=== PATIENT | male | born 1950 | race Caucasian/White ===

== ENCOUNTER 2024-09-29 09:41 | Inpatient (IN) | payer OTHER ==
[~2024-09-29] VITALS: Ht 182.9 cm; Wt 90.7 kg
[2024-09-29] MEDS ORDERED: METF500 PO (10:22)
[2024-09-29] MEDS ORDERED: AMLO5 PO (10:22)
[2024-09-29] MEDS ORDERED: Metoclopramide HCl 5MG / ML 2ML Vial IV ONE (10:30)
[2024-09-29 10:56] LABS: BASOPHILS ABSOLUTE AUTO 0.02 K/mm3 (0.00-0.23); BASOPHILS PERCENT AUTO 0 % (0-2); EOSINOPHILS ABSOLUTE AUTO 0.03 K/mm3 (0.00-0.68); EOSINOPHILS PERCENT AUTO 0 % (0-6); Hemoglobin 13.8 g/dL (13.5-17.5); IMMATURE GRAN ABSOLUTE AUTO 0.03 K/mm3 (0.00-0.10); IMMATURE GRAN PERCENT AUTO 0 % (0-1); LYMPHOCYTES ABSOLUTE AUTO 0.64 K/mm3 (0.84-5.20); LYMPHOCYTES PERCENT AUTO 7 % (21-46); MONOCYTES ABSOLUTE AUTO 0.75 K/mm3 (0.16-1.47); MONOCYTES PERCENT AUTO 8 % (4-13); Mean Corpuscular HGB 28.7 pg (26.0-34.0); Mean Corpuscular HGB Conc 34.5 g/dL (31.5-36.5); Mean Corpuscular Volume 83 fL (80-100); NEUTROPHILS ABSOLUTE AUTO 7.45 K/mm3 (1.96-9.15); NEUTROPHILS PERCENT AUTO 84 % (41-73); Platelet Count 177 K/mm3 (150-400); RDW Coefficient Variation 14.6 % (11.7-14.2); RDW Standard Deviation 44.1 fL (35.1-46.3); Red Blood Cell Count 4.81 M/mm3 (4.30-5.90); White Blood Cell Count 8.92 K/mm3 (4.00-11.30)
[2024-09-29] MEDS ORDERED: Morphine Sulfate 4 MG/1 ML Injection IV ONE (11:20)
[2024-09-29] MEDS ORDERED: Ondansetron HCl 2 MG / ML 2ML Vial IM ONE (11:20)
[2024-09-29 11:44] LABS: Albumin, Blood 3.9 g/dL (3.4-5.0); Albumin/Globulin Ratio 1.1 (0.8-1.8); Bilirubin, Total 1.6 mg/dL (0.1-1.0); Bun/Creatinine Ratio 25.4 (12.0-20.0); Calcium, Blood 9.4 mg/dL (8.5-10.1); Creatinine, Blood 0.47 mg/dL (0.60-1.20); Globulin, Blood 3.6 g/dL (2.2-4.0); Potassium, Blood 3.5 mmol/L (3.5-5.5); Total Protein, Blood 7.5 g/dL (6.4-8.2)
[2024-09-29] MEDS ORDERED: HYDROmorphone HCl/Pf 1MG SYR IV ONE ×2 (13:05→15:45)
[2024-09-29 13:26] LABS: Source, Urine Clean Catch
[2024-09-29 13:32] LABS: Appearance, Urine Clear (Clear); Bilirubin, Urine Neg (Neg); Blood, Urine Neg (Neg); Color, Urine Yellow (P-Yellow); Glucose Qualitative, Urine 4+ (Neg); Ketones, Urine 4+ (Neg); Leukocyte Esterase, Urine Neg (Neg); Nitrite, Urine Neg (Neg); Protein, Urine 1+ (Neg); Specific Gravity, Urine 1.015 (1.003-1.022); Urobilinogen, Urine NORM (Normal)
[2024-09-29] MEDS ORDERED: HYDROmorphone HCl/Pf 1MG SYR IV PRN (17:05)
[2024-09-29] MEDS ORDERED: Docusate Sodium/Senna 1 Tab PO PRN (17:05)
[2024-09-29] MEDS ORDERED: Lactated Ringer's 1,000 ML IV SCH (17:05)
[2024-09-29] MEDS ORDERED: Ondansetron HCl 2 MG / ML 2ML Vial IV PRN (17:05)
[2024-09-29] MEDS ORDERED: FLU VACC TS2024-25(6MOS UP)/PF 45 MCG/0.5 ML SYRINGE IM SCH (17:05)
[2024-09-29 21:53] VITALS: BP 141/122
--- NOTE | 2024-09-30 00:15 | NUR ---
@2129 REPORT RECEIVED FROM THE ELECTRIC ORGAN ASSEMBLER OLVIN. @2144 PT ARRIVED TO THE MEDICAL FLOOR IN A W/C. PT AMBULATORY AND TRANSFERRED HIMSELF TO THE HOSPITAL BED. PT BROUGHT ALL HIS BELONINGS WITH HIM. EDUCATED GROUND WATER CONTRACTOR LIGHT AND FALL PRECAUTIONS. BED AT THE LOWEST POSITION, CALL LIGHT W/I REACH. CHARGE NURSE ARIANA Turpin COMPLETED THE ADMISSION ASSESSMENT.
[2024-09-30 03:47] VITALS: BP 136/73
[2024-09-30 07:13] VITALS: BP 164/82
[2024-09-30] MEDS ORDERED: Enoxaparin 40 MG/0.4 ML SYR SC SCH (09:00)
[2024-09-30 16:02] VITALS: BP 142/80
--- NOTE | 2024-09-30 16:56 | NUR ---
SHIFT SUMMARY: PATIENT IS ALERT AND ORIENTEDX4/INDEPENDENT,CALLS APPROPRIATELY. HE CALLS FOR PAIN MEDICATION. PATIENT IN BED RESTING, RESPIRATIONS EVEN AND UNLABORED, SIGNIFICANT OTHER AT BEDSIDE, CALL LIGHT WITHIN REACH, NO SIGNS OR SYMPTOMS OF DISTRESS,PLAN OF CARE ONGOING.
--- NOTE | 2024-09-30 19:44 | NUR ---
@6938 CRITICAL LAB VALUE OF LACTIC ACID: [id number] RECEIVED FROM AUDREY @LAB. WILL NOTIFY THE ON-CALL HOSPITALIST. WILL NOTIFY OFFICE MACHINES WIRER.
[2024-09-30 22:02] VITALS: BP 122/67
--- NOTE | 2024-10-01 02:56 | NUR ---
SHIFT SUMMARY NO ACUTE EVENTS DURING THIS SHIFT. @HS MULTIPLE FAMILY MEMBERS/VISITORS BY THE BEDSIDE. PT IS A/O X4, PLEASANT AND COOPERATIVE WITH CARE. AMBULATES INDEPENDENTLY W/I THE HOSPITAL ROOM. PT REPORTS 8/10 ABDOMINAL PAIN, RADIATING TO THE FLANKS. MEDICATED PER EMAR WITH GOOD EFFECTIVNESS. PT REPORTS FLATUS, NO BM >2DAYS. HS SCHEDULED BOWEL MEDICATIONS ADMINISTERED ORDERED. BED AT THE LOWEST POSITION, CALL LIGHT W/I REACH. PT CONTINUES ON CLEAR LIQUID DIET. GOOD PO FLUID INTAKE.
[2024-10-01 07:48] VITALS: BP 129/75
--- NOTE | 2024-10-01 15:26 | NUR ---
SHIFT SUMMARY PATIENT AMBULATING INDEPENDENT IN ROOM, C/O ABDOMINAL PAIN. TOLERATING CLEAR LIQUID DIET WELL. VOIDING WELL, STATES TO PASSING GAS. A/OX4. DILAUDED ADMINISTERED FOR PAIN RELIEF. PULSE OX ORDERED AND PLACED. ABLE TO MAKE NEEDS KNOWN.
[2024-10-01 18:10] VITALS: BP 125/66
--- NOTE | 2024-10-02 03:57 | NUR ---
SHIFT SUMMARY NO ACUTE EVENTS DURING THIS SHIFT. MEDICATED FOR LUQ AND RUQ PAIN PER EMAR. PT REPORTS EFFECTIVE. PT C/O CONSTIPATION, HS SCHEDULED BOWEL MEDS ADMINISTERED ORDERED. PT PASSING GAS, AND BOWEL TONES HYPOACTIVE PER AUSCULTATION. ABD IS FIRM AND MODERATELY DISTENDED PER ASSESSMENT. PT IS INDEPENDENT W/I THE HOSPITAL ROOM, AMBULATES TO THE RESTROOM, VOIDING WELL. BED AT THE LOWEST POSITION, CALL LIGHT W/I REACH.
[2024-10-02 05:28] LABS: BASOPHILS ABSOLUTE AUTO 0.02 K/mm3 (0.00-0.23); BASOPHILS PERCENT AUTO 0 % (0-2); EOSINOPHILS ABSOLUTE AUTO 0.18 K/mm3 (0.00-0.68); EOSINOPHILS PERCENT AUTO 3 % (0-6); Hematocrit 31.6 % (37.0-53.0); Hemoglobin 10.4 g/dL (13.5-17.5); IMMATURE GRAN ABSOLUTE AUTO 0.02 K/mm3 (0.00-0.10); IMMATURE GRAN PERCENT AUTO 0 % (0-1); LYMPHOCYTES ABSOLUTE AUTO 0.73 K/mm3 (0.84-5.20); LYMPHOCYTES PERCENT AUTO 11 % (21-46); MONOCYTES ABSOLUTE AUTO 0.75 K/mm3 (0.16-1.47); MONOCYTES PERCENT AUTO 12 % (4-13); Mean Corpuscular HGB 28.3 pg (26.0-34.0); Mean Corpuscular HGB Conc 32.9 g/dL (31.5-36.5); Mean Corpuscular Volume 86 fL (80-100); Mean Platelet Volume 10.8 fL (9.1-12.4); NEUTROPHILS ABSOLUTE AUTO 4.71 K/mm3 (1.96-9.15); NEUTROPHILS PERCENT AUTO 74 % (41-73); Platelet Count 123 K/mm3 (150-400); RDW Coefficient Variation 14.6 % (11.7-14.2); RDW Standard Deviation 46.2 fL (35.1-46.3); Red Blood Cell Count 3.68 M/mm3 (4.30-5.90); White Blood Cell Count 6.41 K/mm3 (4.00-11.30)
[2024-10-02 06:04] LABS: Albumin, Blood 2.6 g/dL (3.4-5.0); Albumin/Globulin Ratio 0.7 (0.8-1.8); Bilirubin, Total 1.1 mg/dL (0.1-1.0); Calcium, Blood 8.2 mg/dL (8.5-10.1); Creatinine, Blood 0.52 mg/dL (0.60-1.20); Globulin, Blood 3.5 g/dL (2.2-4.0); Potassium, Blood 3.2 mmol/L (3.5-5.5); Total Protein, Blood 6.1 g/dL (6.4-8.2)
[2024-10-02 07:44] VITALS: BP 122/72
[2024-10-02] MEDS ORDERED: Potassium Chloride 10 Meq Tablet SA PO ONE (08:25)
[2024-10-02] MEDS ORDERED: LOSARTAN-HCTZ1 EACH PO (09:10)
[2024-10-02] MEDS ORDERED: JARDIANCE25 MG PO (09:10)
[2024-10-02] MEDS ORDERED: PRAV20 PO (09:10)
[2024-10-02] MEDS ORDERED: Protein Supplement 30 ML UD PO SCH (14:00)
[2024-10-02 15:41] VITALS: BP 132/73
--- NOTE | 2024-10-02 18:00 | NUR ---
SHIFT SUMMARY PT A&OX4, VSS, AMB IND, TOLERATING PO, VOIDING, AND PAIN MANAGED PER EMAR. PLAN FOR BIOPSY TOMORROW. HOME MEDS UPDATED IN EMAR. NO OTHER ACUTE CHANGES. CALL LIGHT WITHIN REACH AND PT ABLE TO MAKE NEEDS KNOWN.
[2024-10-02 19:30] VITALS: BP 119/65
[2024-10-03 05:08] VITALS: BP 126/79
--- NOTE | 2024-10-03 05:20 | NUR ---
Shift Summary Pt has been NPO except water since 0000 incase there is a biopsy today. No acute changes, pt medicated per EMAR for pain. I held scheduled Toradol because pt's latest AST/ALT labs were elevated > 200. Pt is AOx4, independent in the room, no c/o of nausea.
--- NOTE | 2024-10-03 05:33 | NUR ---
Shift Summary Pt NPO since 0000 excpet for water because of report he may have a biopsy today. Pt states he tolerated full liquid dinner last night well. Medicated PRN for pain. No acute changes. Pt is AOx4 and indepedent in the room. Slept well t/o most of the night.
[2024-10-03 07:47] VITALS: BP 132/86
[2024-10-03 08:34] LABS: International Normalized Ratio 1.07; Prothrombin Time Results 11.4 Sec (9.7-11.5)
[2024-10-03] MEDS ORDERED: Losartan Potassium 50 MG Tab PO SCH (09:00)
[2024-10-03] MEDS ORDERED: Pravastatin Sodium 20 MG Tab PO SCH (09:00)
[2024-10-03] MEDS ORDERED: FentaNYL 12 MCG/HR Patch TOP SCH (09:00)
[2024-10-03] MEDS ORDERED: HydroCHLOROthiazide 25 mg Tab PO SCH (09:00)
[2024-10-03] MEDS ORDERED: AmLODIPine Besylate 5 MG Tab PO SCH (09:00)
[2024-10-03] MEDS ORDERED: Empagliflozin 25 MG TAB PO SCH (09:00)
[2024-10-03 10:02] LABS: Alpha Feto Protein, Tumor Mkr 0.6 ng/mL (0.0-8.0); Carcinoembryonic Antigen 22.2 ng/mL (0.0-3.0)
[2024-10-03 12:01] LABS: Cancer Antigen 19-9 85921.6 U/mL (2.0-37.0)
[2024-10-03 14:57] VITALS: BP 119/78
[2024-10-03 15:46] VITALS: BP 116/67
[2024-10-03 16:23] VITALS: BP 113/61
--- NOTE | 2024-10-03 18:05 | NUR ---
SHIFT SUMMARY BIOPSY COMPLETED THIS SHIFT. PT TOLERATING FULL LIQUID DIET, VOIDING, AND PAIN MEDICATED PER EMAR. NO OTHER ACUTE CHANGES. CALL LIGHT WITHIN REACH AND PT ABLE TO MAKE NEEDS KNOWN.
[2024-10-03 19:54] VITALS: BP 135/80
[2024-10-04 04:53] VITALS: BP 120/75
[2024-10-04 04:56] LABS: BASOPHILS ABSOLUTE AUTO 0.04 K/mm3 (0.00-0.23); BASOPHILS PERCENT AUTO 1 % (0-2); EOSINOPHILS ABSOLUTE AUTO 0.23 K/mm3 (0.00-0.68); EOSINOPHILS PERCENT AUTO 4 % (0-6); Hematocrit 30.9 % (37.0-53.0); Hemoglobin 10.3 g/dL (13.5-17.5); IMMATURE GRAN ABSOLUTE AUTO 0.02 K/mm3 (0.00-0.10); IMMATURE GRAN PERCENT AUTO 0 % (0-1); LYMPHOCYTES PERCENT AUTO 14 % (21-46); MONOCYTES PERCENT AUTO 14 % (4-13); Mean Corpuscular HGB 28.1 pg (26.0-34.0); Mean Corpuscular HGB Conc 33.3 g/dL (31.5-36.5); Mean Corpuscular Volume 84 fL (80-100); Mean Platelet Volume 10.2 fL (9.1-12.4); NEUTROPHILS ABSOLUTE AUTO 3.77 K/mm3 (1.96-9.15); NEUTROPHILS PERCENT AUTO 67 % (41-73); Platelet Count 145 K/mm3 (150-400); RDW Coefficient Variation 14.2 % (11.7-14.2); RDW Standard Deviation 43.7 fL (35.1-46.3); Red Blood Cell Count 3.66 M/mm3 (4.30-5.90); White Blood Cell Count 5.66 K/mm3 (4.00-11.30)
[2024-10-04 05:24] LABS: Albumin, Blood 2.6 g/dL (3.4-5.0); Albumin/Globulin Ratio 0.7 (0.8-1.8); Bilirubin, Total 0.7 mg/dL (0.1-1.0); Bun/Creatinine Ratio 28.1 (12.0-20.0); Calcium, Blood 8.5 mg/dL (8.5-10.1); Creatinine, Blood 0.53 mg/dL (0.60-1.20); Globulin, Blood 3.5 g/dL (2.2-4.0); Phosphorus, Blood 4.5 mg/dL (2.5-4.9); Potassium, Blood 3.3 mmol/L (3.5-5.5); Total Protein, Blood 6.1 g/dL (6.4-8.2)
--- NOTE | 2024-10-04 06:12 | NUR ---
Shift Summary No acute changes. I gave him 1mg dilauded PRN down from 2mg as he now has a fentanyl patch on, pt states pain is well managed on 1mg. Pt is AOx4, independent in the room, slept well t/o the night.
[2024-10-04 07:26] VITALS: BP 125/72
[2024-10-04] MEDS ORDERED: OxyCODONE HCL 5 MG TAB PO PRN (09:00)
[2024-10-04] MEDS ORDERED: Acetaminophen 500 MG Tab PO PRN (09:00)
[2024-10-04] MEDS ORDERED: HYDROmorphone HCl/Pf 1MG SYR IV PRN (09:00)
[2024-10-04 15:53] VITALS: BP 108/65
--- NOTE | 2024-10-04 17:55 | NUR ---
SHIFT SUMMARY FACESHEET FAXED TO IR FOR CONSULT FOR CHEMOPORT PLACEMENT. PT TOLERATING REGULAR DIET AND VOIDING W/ OUT DIFFICULTY. PAIN MANAGED PER EMAR. NO OTHER ACUTE CHANGES. CALL LIGHT WITHIN REACH AND PT ABLE TO MAKE NEEDS KNOWN.
[2024-10-04 20:08] VITALS: BP 117/83
[2024-10-05 02:27] VITALS: BP 128/74
[2024-10-05 07:24] VITALS: BP 123/71
--- NOTE | 2024-10-05 09:21 | NUR ---
Pt laying in bed watching tv, a/ox4, pleasant and cooperative with care, follows commands well, states pain is ok, and slept ok last night, lungs are clear t/o, resp even and unlabored, no cough noted, hrr, no edema noted, ppp+2, cap refill<3 sec, vs stable, afebrile, piv to lac, site is clear and patent, btx4, abd flat soft nontender, voides without diff, skin c/w/d, maew, ambulates with cane, call light in reach.
--- NOTE | 2024-10-05 18:56 | NUR ---
pt resting in bed, family in room with him, he was awaiting a port placement, but got bumped to morning, will keep npo after midnight, no acute changes this shift. call light in reach.
[2024-10-05 19:42] VITALS: BP 136/75
[2024-10-06 02:54] VITALS: BP 118/68
--- NOTE | 2024-10-06 04:04 | NUR ---
SHIFT SUMMARY PATIENT HAD NO ACUTE CHANGES. NPO FOR MEDIPORT PLACEMENT. AXOX 4 AND INDEPENDENT. REPORTED ABDOMEN PAIN X ONE AND OXYCODONE 5 MG GIVEN PER EMAR. DENIES CHEST PAIN, SOB, AND N/V. VSS/AFEBRILE. SLEPT MOST OF THE SHIFT. CALL LIGHT IN REACH. BED IN LOWEST POSITION. WILL CONTINUE TO MONITOR UNTIL DAY SHIFT NURSE ASSUMES CARE.
[2024-10-06 05:06] LABS: BASOPHILS ABSOLUTE AUTO 0.03 K/mm3 (0.00-0.23); BASOPHILS PERCENT AUTO 1 % (0-2); EOSINOPHILS ABSOLUTE AUTO 0.23 K/mm3 (0.00-0.68); EOSINOPHILS PERCENT AUTO 4 % (0-6); Hematocrit 33.8 % (37.0-53.0); Hemoglobin 11.1 g/dL (13.5-17.5); IMMATURE GRAN ABSOLUTE AUTO 0.04 K/mm3 (0.00-0.10); IMMATURE GRAN PERCENT AUTO 1 % (0-1); LYMPHOCYTES ABSOLUTE AUTO 0.78 K/mm3 (0.84-5.20); LYMPHOCYTES PERCENT AUTO 14 % (21-46); MONOCYTES ABSOLUTE AUTO 0.72 K/mm3 (0.16-1.47); MONOCYTES PERCENT AUTO 13 % (4-13); Mean Corpuscular HGB 27.8 pg (26.0-34.0); Mean Corpuscular HGB Conc 32.8 g/dL (31.5-36.5); Mean Corpuscular Volume 85 fL (80-100); Mean Platelet Volume 10.4 fL (9.1-12.4); NEUTROPHILS ABSOLUTE AUTO 3.79 K/mm3 (1.96-9.15); NEUTROPHILS PERCENT AUTO 68 % (41-73); Platelet Count 142 K/mm3 (150-400); RDW Coefficient Variation 14.4 % (11.7-14.2); RDW Standard Deviation 44.4 fL (35.1-46.3); White Blood Cell Count 5.59 K/mm3 (4.00-11.30)
[2024-10-06 05:30] LABS: Albumin, Blood 2.8 g/dL (3.4-5.0); Albumin/Globulin Ratio 0.7 (0.8-1.8); Bilirubin, Total 0.6 mg/dL (0.1-1.0); Bun/Creatinine Ratio 36.9 (12.0-20.0); Calcium, Blood 8.6 mg/dL (8.5-10.1); Creatinine, Blood 0.52 mg/dL (0.60-1.20); Globulin, Blood 3.8 g/dL (2.2-4.0); Potassium, Blood 3.5 mmol/L (3.5-5.5); Total Protein, Blood 6.6 g/dL (6.4-8.2)
[2024-10-06 07:34] VITALS: BP 116/70
[2024-10-06] MEDS ORDERED: NS 250 ML IV ONE (13:00)
[2024-10-06] MEDS ORDERED: Heparin Sodium 1000 Units/ML 10ML MDV ONE (13:00)
[2024-10-06] MEDS ORDERED: Midazolam HCl 1MG / ML 2ML Vial ONE (13:35)
[2024-10-06] MEDS ORDERED: FentaNYL Citrate 50 MCG/ML 2 ML Injection ONE (13:36)
[2024-10-06] MEDS ORDERED: NS 500 ML IV ONE (13:36)
[2024-10-06] MEDS ORDERED: NS 50 ML IV ONE (13:52)
[2024-10-06] MEDS ORDERED: CeFAZolin Sodium 2,000 MG VIAL ONE (13:52)
[2024-10-06 14:36] VITALS: BP 142/86
[2024-10-06] MEDS ORDERED: ACET500 PO (16:17)
[2024-10-06] MEDS ORDERED: DOCUZEN 8.6-501 EACH PO (16:18)
[2024-10-06] MEDS ORDERED: OXYC5 PO (16:19)
[2024-10-06] MEDS ORDERED: FENTANYL1 EA12 TOP (16:19)
--- NOTE | 2024-10-06 18:04 | NUR ---
DISCHARGE NOTE PATIENT A/OX4, ABLE TO MAKE NEEDS KNOWN. PLEASANT AND COOPERATIVE WITH CARE. MEDIPORT PLACED TO RIGHT UPPER CHEST THIS AFTERNOON. FAMILY AT BEDSIDE DURING DISCHARGE INSTRUCTION. PLAN TO FOLLOW UP WITH PRIMARY CARE ON WEDNESDAY AND ONCOLOGY ON WEDNESDAY. PATIENT SENT WITH HARD PRESCRIPTIONS FOR FENTANYL PATCH AND OXYCODONE, ALL OTHER MEDICATIONS FAXED TO [facility] PER PATIENT REQUEST.FENTANYL PATCH REPLACED TODAY. PATIENT REQUESTED ALL HOSPITAL RECORDS BE FAXED TO HIS PRIMARY CARE IN [place], COMPLETED BY THIS RN AND PAPER COPY OF RECORDS SENT WITH PATIENT. PATIENT AND FAMILY WITH NO QUESTIONS OR CONCERNS AT TIME OF DISCHARGE ABND AGREEABLE TO PLAN. IV AND CONTINUOUS PULSE OX REMOVED PRIOR TO DISCHARGE. PATIENT ASSISTED TO FAMILY VEHICLE VIA WHEELCHAIR.
== END 2024-10-06 17:26 | disposition home or self-care (01) | DRG 423 ==
LOC: ER 09:41 → MEDS 09:42
PROVIDERS: Family Medicine; Internal Medicine; Student in an Organized Health Care Education/Training Program; ADMIT Family Medicine
PROC: 0FB13ZX Excision of Right Lobe Liver, Percutaneous Approach, Diagnostic (ICD-10-PCS; principal; 2024-10-03)
PROC: 0JH60WZ Insertion of Totally Implantable Vascular Access Device into Chest Subcutaneous Tissue and Fascia, Open Approach (ICD-10-PCS; 2024-10-06)
PROC: 05HY33Z Insertion of Infusion Device into Upper Vein, Percutaneous Approach (ICD-10-PCS; 2024-10-06)
DX: C25.2 Malignant neoplasm of tail of pancreas (principal); K83.1 Obstruction of bile duct; K85.80 Other acute pancreatitis without necrosis or infection; C78.7 Secondary malignant neoplasm of liver and intrahepatic bile duct; E44.0 Moderate protein-calorie malnutrition; C78.6 Secondary malignant neoplasm of retroperitoneum and peritoneum; E87.1 Hypo-osmolality and hyponatremia; N17.9 Acute kidney failure, unspecified; I10 Essential (primary) hypertension; E11.65 Type 2 diabetes mellitus with hyperglycemia; Z96.651 Presence of right artificial knee joint; Z79.84 Long term (current) use of oral hypoglycemic drugs; Z68.27 Body mass index [BMI] 27.0-27.9, adult
CPT/HCPCS: 36415; 47000; 71260; 74177; 76937; 77012; 80053; 82105; 82378; 83690; 83735; 84100; 84484; 85025; 85610; 85730; 86301; 88307; 88341; 88342; 93005; 93010; 94762; 96361; 96372; 96374-59; 96375; 96376; 99152; 99153; 99285-25; A9270; C1788; C1894; G0378; J0690; J1171; J1642; J1644; J1650; J2250; J2270; J2405; J2765; J3010; J7040; J7050; Q9967